=== PATIENT | male | born 1955 | race Caucasian/White ===

== ENCOUNTER 2021-03-13 14:33 | Inpatient (IN) ==
[2021-03-13 15:45] LABS: Basophils % 0.3 %; Eosinophils # 0.1 K/mcL (0.0-0.6); Eosinophils % 1.1 %; Hematocrit 51.5 % (37.5-50.1); Hemoglobin 16.9 g/dL (12.9-16.9); Immature Granulocytes % 0.4 % (0-4); Lymphocytes # 1.6 K/mcL (0.6-4.6); Lymphocytes % 13.3 %; Mean Corpuscular HGB Conc 32.8 g/dL (31.6-35.5); Mean Corpuscular Hemoglobin 29.8 pg (28.0-33.3); Mean Corpuscular Volume 90.7 fL (83.0-100.0); Mean Platelet Volume 10.2 fL (9.4-12.4); Monocytes # 1.2 K/mcL (0.0-1.3); Monocytes % 10.6 %; Neutrophils # 8.7 K/mcL (1.6-8.9); Platelet Count 374 K/mcL (140-400); Red Blood Count 5.68 M/mcL (4.19-5.50); Red Cell Distribution Width 12.2 % (11.5-14.5); Segmented Neutrophils % 74.3 %; White Blood Count 11.7 K/mcL (4.3-11.1)
[2021-03-13 15:46] LABS: BUN/Creatinine Ratio 11 (6-26); Blood Urea Nitrogen 13 mg/dL (8-23); Carbon Dioxide 26 mEq/L (23-29); Chloride 100 mEq/L (98-107); Glucose 122 mg/dL (70-105); Osmolality,Calculated 283 (280-300); Sodium 136 mEq/L (136-145); eGFR For African Americans > 60 (> 60); eGFR For Non-African Americans > 60 (> 60)
[2021-03-13 15:50] LABS: INR 1.2; Prothrombin Time 13.3 Seconds (9.4-12.1)
[2021-03-13 15:53] LABS: Troponin I < 0.03 ng/mL (< 0.04)
[2021-03-13] MEDS ORDERED: Naloxone 0.4 MG/ML INJ IVP PRN (18:08)
[2021-03-13] MEDS ORDERED: Melatonin 3 MG TABLET PO PRN (18:08)
[2021-03-13] MEDS ORDERED: MOM Conc 10 ML UD.LIQ PO PRN (18:08)
[2021-03-13] MEDS ORDERED: Ondansetron 4 MG/2 ML VIAL IVP PRN (18:08)
[2021-03-13] MEDS ORDERED: Mag Hydrox/Al Hydrox/Simeth 30 ML UDC PO PRN (18:08)
[2021-03-13] MEDS ORDERED: Acetaminophen 325 MG TABLET PO PRN (18:08)
[2021-03-13] MEDS ORDERED: Nitroglycerin 1 INCH/GM PACKET TP ONE (19:02)
[2021-03-13] MEDS ORDERED: *HR* Heparin 5,000 UNIT/ML VIAL IVP ONE (19:10)
[2021-03-13] MEDS ORDERED: *HR* Heparin 5,000 UNIT/ML VIAL IVP PRN ×2 (19:10)
[2021-03-13] MEDS: Nitroglycerin 1 INCH/GM PACKET TP SCH (20:24)
[2021-03-13 20:31] LABS: Hematocrit 49.1 % (37.5-50.1); Hemoglobin 16.3 g/dL (12.9-16.9); Mean Corpuscular HGB Conc 33.2 g/dL (31.6-35.5); Mean Corpuscular Hemoglobin 29.4 pg (28.0-33.3); Mean Corpuscular Volume 88.5 fL (83.0-100.0); Mean Platelet Volume 9.9 fL (9.4-12.4); Platelet Count 377 K/mcL (140-400); Red Blood Count 5.55 M/mcL (4.19-5.50); Red Cell Distribution Width 12.4 % (11.5-14.5)
[2021-03-13] MEDS: Heparin 25,000UNIT/250ML 1/2NS 25,000 UNIT/250 ML IV.SOLN IVC SCH (21:11)
[2021-03-14 00:39] LABS: Hematocrit 45.7 % (37.5-50.1); Hemoglobin 15.2 g/dL (12.9-16.9); Mean Corpuscular HGB Conc 33.3 g/dL (31.6-35.5); Mean Corpuscular Hemoglobin 29.1 pg (28.0-33.3); Mean Corpuscular Volume 87.5 fL (83.0-100.0); Mean Platelet Volume 10.1 fL (9.4-12.4); Platelet Count 372 K/mcL (140-400); Red Blood Count 5.22 M/mcL (4.19-5.50); Red Cell Distribution Width 12.4 % (11.5-14.5); White Blood Count 12.6 K/mcL (4.3-11.1)
[2021-03-14 01:00] LABS: BUN/Creatinine Ratio 10 (6-26); Blood Urea Nitrogen 12 mg/dL (8-23); Calcium 9.1 mg/dL (8.6-10.3); Carbon Dioxide 25 mEq/L (23-29); Chloride 104 mEq/L (98-107); Chol/HDL Ratio 3.7 (0-4.9); Cholesterol 125 mg/dL (< 200); Glucose 102 mg/dL (70-105); HDL Cholesterol 34 mg/dL (40-59); LDL Cholesterol,Calculated 71 mg/dL (< 100); Magnesium 2.4 mg/dL (1.6-2.6); Osmolality,Calculated 284 (280-300); Potassium 4.1 mEq/L (3.5-5.1); Sodium 137 mEq/L (136-145); Triglycerides 102 mg/dL (< 150); eGFR For African Americans > 60 (> 60); eGFR For Non-African Americans > 60 (> 60)
[2021-03-14] MEDS: Nitroglycerin 1 INCH/GM PACKET TP SCH ×2 (06:05→13:10)
[2021-03-14] MEDS: lisinopriL 20 MG TABLET PO SCH (08:10)
[2021-03-14] MEDS: Aspirin 81 MG TAB.CHEW PO SCH (08:10)
[2021-03-14] MEDS ORDERED: predniSONE 20 MG TABLET PO ONE (12:11)
[2021-03-14] MEDS ORDERED: Perflutren Lipid Microsphere 1.3 ML in 0.9 % Sodium Chloride 8.7 ML IVP PRN (12:24)
[2021-03-14] MEDS ORDERED: 0.9 % Sodium Chloride 2,000 ML ONE (13:36)
[2021-03-14] MEDS ORDERED: Heparin 1,000 UNITS/500 mL 500 ML ONE (13:36)
[2021-03-14] MEDS ORDERED: Nitroglycerin 1,000 MCG/5 ML VIAL IV ONE (13:37)
[2021-03-14] MEDS ORDERED: *HR* Heparin 10,000 UNIT/10 ML VIAL ONE ×2 (13:37→14:54)
[2021-03-14] MEDS ORDERED: ISOVUE-370 200 ML INFUS..BTL ONE (13:37)
[2021-03-14] MEDS: Heparin 25,000UNIT/250ML 1/2NS 25,000 UNIT/250 ML IV.SOLN IVC SCH (14:05)
[2021-03-14] MEDS ORDERED: *HR* Midazolam HCl 2 MG/2 ML VIAL ONE (14:15)
[2021-03-14] MEDS ORDERED: *HR* FentaNYL (PF) 100 MCG/2 ML VIAL ONE (14:15)
[2021-03-14] MEDS ORDERED: *HR* Ticagrelor 90 MG TABLET ONE (14:54)
[2021-03-14] MEDS: 0.9 % Sodium Chloride 1,000 ML IVC SCH (15:51)
[2021-03-14] MEDS ORDERED: Adenosine 90 MG/30 ML MLS IV ONE (18:11)
[2021-03-14] MEDS: *HR* Ticagrelor 90 MG TABLET PO SCH (22:22)
[2021-03-15] MEDS: 0.9 % Sodium Chloride 1,000 ML IVC SCH ×2 (00:49→11:31)
[2021-03-15] MEDS: Nitroglycerin 1 INCH/GM PACKET TP SCH (05:28)
[2021-03-15 07:06] LABS: Hematocrit 49.5 % (37.5-50.1); Hemoglobin 16.5 g/dL (12.9-16.9); Mean Corpuscular HGB Conc 33.3 g/dL (31.6-35.5); Mean Corpuscular Hemoglobin 29.9 pg (28.0-33.3); Mean Corpuscular Volume 89.7 fL (83.0-100.0); Mean Platelet Volume 10.1 fL (9.4-12.4); Platelet Count 422 K/mcL (140-400); Red Blood Count 5.52 M/mcL (4.19-5.50); Red Cell Distribution Width 12.4 % (11.5-14.5); White Blood Count 17.5 K/mcL (4.3-11.1)
[2021-03-15 07:22] LABS: BUN/Creatinine Ratio 14 (6-26); Blood Urea Nitrogen 15 mg/dL (8-23); eGFR For African Americans > 60 (> 60); eGFR For Non-African Americans > 60 (> 60)
[2021-03-15] MEDS: Aspirin 81 MG TAB.CHEW PO SCH (08:18)
[2021-03-15] MEDS: lisinopriL 20 MG TABLET PO SCH (08:19)
[2021-03-15] MEDS: *HR* Ticagrelor 90 MG TABLET PO SCH (08:19)
[2021-03-15] MEDS ORDERED: Zinc Sulfate 220 MG CAPSULE PO SCH (09:00)
[2021-03-15] MEDS ORDERED: Nitroglycerin 0.4 MG TAB.SUBL SL PRN (10:33)
[2021-03-15] MEDS: Heparin 25,000UNIT/250ML 1/2NS 25,000 UNIT/250 ML IV.SOLN IVC SCH (11:07)
[2021-03-15 11:49] VITALS: BP 108/67
== END 2021-03-15 13:53 | disposition home or self-care (01) | DRG 247 ==
LOC: EMEROOARM 14:33 → 3BNU 14:33 → SUATTDRO 18:10 → 3BNU 19:22
PROVIDERS: ADMIT Family Medicine; ATTEND Nurse Practitioner